=== PATIENT | male | born 1940 | race Caucasian/White ===

== ENCOUNTER 2022-10-23 10:15 | Outpatient (CLI) | payer SELFPAY | END 2022-10-23 10:16 | disposition home or self-care (01) | LOC: CSHRAD 10:15 | PROVIDERS: ATTEND Neurological Surgery | DX: S12.600A Unspecified displaced fracture of seventh cervical vertebra, initial encounter for closed fracture (principal); S22.089A Unspecified fracture of T11-T12 vertebra, initial encounter for closed fracture; M47.812 Spondylosis without myelopathy or radiculopathy, cervical region; M43.12 Spondylolisthesis, cervical region; M47.814 Spondylosis without myelopathy or radiculopathy, thoracic region | CPT/HCPCS: 72040; 72070 ==